=== PATIENT | female | born 1945 | race Caucasian/White ===

== ENCOUNTER 2021-01-25 13:40 | Outpatient (CLI) | payer MEDICARE, OTHER, SELFPAY ==
--- NOTE | 2021-01-25 14:29 | ECG_ITS ---
Measurements Intervals [place] Rate: 58 P: 44 ME: 170 QRS: 13 QRSD: 81 T: 15 QT: 391 QTc: 385 Interpretive Statements SINUS BRADYCARDIA BASELINE ARTIFACT- I, II, AVR, AVL, AVF BORDERLINE ECG Electronically Signed On 01-25-2021 15:04:41 [employer] by Tio Kamara D.O.
[2021-01-25 14:53] LABS: Basophils Absolute Auto 0.1 K/mm3 (0.0-0.1); Eosinophils Absolute Auto 0.1 K/mm3 (0-0.3); Eosinophils Percent Auto 1.3 % (0-4.4); Hematocrit 47.1 % (37.0-47.0); Hemoglobin 15.3 g/dL (12.0-15.0); Immature Granulocyte Absolute 0.03 K/mm3 (0.00-0.031); Immature Granulocyte Percent A 0.3 % (0-0.5); Lymphocytes Absolute Auto 3.18 K/mm3 (0.9-3.2); Lymphocytes Percent Auto 30.9 % (18.3-44.2); Mean Corpuscular HGB Conc 32.5 g/dl (32-36); Mean Corpuscular Hemoglobin 30.9 pg (26-34); Mean Corpuscular Volume 95.2 fl (80-100); Mean Platelet Volume 10.4 fl (7.4-10.4); Monocytes Absolute Auto 0.8 K/mm3 (0.1-0.6); Monocytes Percent Auto 7.7 % (2.6-8.5); Neutrophils Absolute Auto 6.1 K/mm3 (1.3-6.7); Neutrophils Percent Auto 58.8 % (45.5-73.1); Platelet Count Result 289 k/mm3 (150-375); Red Blood Count 4.95 M/mm3 (4.2-5.4); Red Cell Distribution Width 13.2 % (11.5-14.5); White Blood Count 10.3 K/mm3 (4.5-10.0)
[2021-01-25 15:11] LABS: Alanine Aminotransferase 24 U/L (4-35); Albumin Level 4.7 g/dL (3.5-5.1); Alkaline Phosphatase 105 U/L (38-126); Anion Gap 8 mmol/L (8-16); Aspartate Amino Transferase 33 U/L (14-36); Bilirubin,Total 0.4 mg/dL (0.2-1.3); Blood Urea Nitrogen 25 mg/dL (7-17); Calcium 9.2 mg/dL (8.4-10.2); Carbon Dioxide 29 mmol/L (22-30); Chloride 99 mmol/L (98-107); Estimated Glomerular Filt Rate > 60; Glucose 100 mg/dL (65-110); Potassium 3.8 mmol/L (3.4-5.0); Sodium 136 mmol/L (137-145)
[2021-01-25 17:14] LABS: INR 0.8; Prothrombin Time 11.4 Seconds (11.1-14.7)
[2021-01-25 17:16] LABS: Partial Thromboplastin Time 25.4 SECONDS (22.3-36.8)
== END 2021-01-25 13:41 | disposition home or self-care (01) ==
LOC: ANHSURGERY 13:46
PROVIDERS: PCP Internal Medicine; Visit Provider Urology
DX: N81.10 Cystocele, unspecified (principal); Z01.818 Encounter for other preprocedural examination; R94.31 Abnormal electrocardiogram [ECG] [EKG]
CPT/HCPCS: 36415; 80053; 85025; 85610; 85730; 87086; 93005

== ENCOUNTER 2021-02-08 00:20 | Day surgery (SDC) | payer MEDICARE, OTHER, SELFPAY ==
[2021-01-25 13:52] VITALS: BP 128/76; PULSE 60; RESP 18; TEMP 36.9; O2SAT 98; BMI 27.9
--- NOTE | 2021-01-25 13:53 | PC.NURSE ---
Report to the Outpatient Waiting Room, entrance under the green pavilion located off [facility], at time _1000_ on date _02/08/21__. OR Time: _1200__. - You and your visitor will be asked a series of questions to screen for COVID 19 for your protection. - A mask is required within the hospital. - Only one visitor is allowed at this time. Patient visitors will be guided where to wait when not with patient. Preoperative COVID Testing Requirements: No COVID Test needed if: (proof is required; if not received patient will have Rapid Test prior to entry) - Patient has received COVID Vaccine at least 14 days prior to procedure date or - Patient has positive COVID test result within last 90 days of surgery date. COVID Test needed if above criteria is not met If not COVID vaccinated a COVID test must be conducted within 72 hours of surgery and patient is asked to isolate self from time of testing until procedure. You will go to the [facility] for your COVID testing. The [facility] [facility] Testing site is located at the corner of [address] [facility]. You will only be called if COVID results are positive and your surgeon may reschedule your elective surgery date. Patients may have clear liquids (water, carbonated beverages, clear teas, apple juice) until 3 hours prior to surgery with a maximum of 20 ounces. (0900 AM) - No food from midnight until time of surgery - Infants may have breast milk until 4 hours before surgery, infant formula 6 hours prior to surgery. - Children will be allowed to drink immediately following surgery. If applicable, please bring a bottle or sippy cup to assist with drinking. Juice, water, soda, and popsicles are readily available. For infants on formula, please bring formula the day of surgery. Pacifiers are allowed. Take the following medications with a SIP of water the morning of surgery:__N/A___ Medications to discontinue per physician Date to take last dose Please no make-up, nail english, hairspray, perfume, deodorant, or body powder the day of surgery. No jewelry (including any body piercings) or valuables the day of surgery, leave them at home. Please take a shower or bath the night before, or the morning of, surgery with an antibacterial soap. Wear comfortable, loose fitting clothing. Children are encouraged to wear pajamas. - Jewelry must be removed prior to entering the operating room. Rings and piercings that are not removed may be cut off. - The hospital will not accept responsibility for valuables. - Please leave all valuables, including medications, at home the day of surgery. If you are going home after surgery, a licensed hog driver must drive you home. - NO public transportation without another adult. - We recommend that an adult stay with you for 24 hours following discharge. - We also recommend that you do not drive, make important decision, drink alcoholic beverages, or take any drugs that were not prescribed by your health care provider for at least 24 hours after your discharge time. For Pediatric surgeries, we recommend two adults accompany the child home (only one inside the building at this time). Follow any additional instructions given to you from your surgeon. Telephone instructions given to PT and asked if any additional questions and then verbalized understanding. Patient advised to call surgeon office or pre surgery nurse liaison [phone] if any additional questions.
--- NOTE | 2021-02-05 14:32 | P.HP_ITS ---
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 Alcohol intake: current Drinks per week: 14 Alcohol use details: 2 GLASSES WINE/NOC Substance use: never Substance use type: does not use Spiritual care concerns: No Meds Home Medications and Allergies Home Medications Medication Instructions Recorded Confirmed Type atorvastatin 20 mg HS 01/25/21 01/25/21 History gabapentin 100 mg QAM 01/25/21 01/25/21 History Allergies Allergy/AdvReac Type Severity Reaction Status Date / Time No Known Allergies Allergy Mild Unverified 01/25/21 14:06 Exam Narrative: anterior wall and apex at +3 Assessment and Plan Assessment and plan (1) Prolapse of vaginal vault after hysterectomy: Code(s): N99.3 - Prolapse of vaginal vault after hysterectomy Status: Acute Assessment and Plan: Robotic Sacral Colpopexy (2) RADHA (stress urinary incontinence, female): Code(s): N39.3 - Stress incontinence (female) (male) Status: Acute Assessment and Plan: urethral sling
[2021-02-08] VITALS (9 sets, daily range): BP systolic 129–156; BP diastolic 64–82; PULSE 64–102; RESP 14–16; TEMP 36.3–36.9; O2SAT 87–100
--- NOTE | 2021-02-08 07:11 | WPDHPUPDATE1 ---
History and Physical Update Update Date/Time: 02/08/21 07:11 History and Physical has been reviewed, including an updated exam of the patient. There are NO changes in the patient's condition. Risks, benefits, and alternatives have been discussed and questions answered. Patient agrees to proceed with procedure.
--- NOTE | 2021-02-08 09:19 | WPDANESEPPF ---
Anes - Initial Pre Proc Eval Procedure: Operation Date: 02/08/21 11:30 Proposed Procedures p Robotic Sacrocolpopexy - Manny Villalba MD s Urethral Sling - Manny Villalba MD Date/Time: 02/08/21 09:19 Surgeon: Manny Villalba MD Pre Op Diagnosis: vaginal vault prolapse, stress incont Patient Data Age: 75 Gender: F Height: 1.68 m Weight: 78.6 kg Last Vital Signs Temp 98.5 F 01/25/21 13:52 Pulse 60 01/25/21 13:52 Resp 18 01/25/21 13:52 BP 128/76 01/25/21 13:52 Pulse Ox 98 01/25/21 13:52 Allergies Allergy/AdvReac Type Severity Reaction Status Date / Time No Known Allergies Allergy Mild Unverified 02/08/21 09:39 Home Medications Medication Instructions Recorded Confirmed Type atorvastatin 20 mg HS 01/25/21 02/08/21 History gabapentin 100 mg QAM 01/25/21 02/08/21 History docusate sodium [Colace] 100 mg PO BID #60 cap 02/08/21 Rx hydrocodone-acetaminophen 1 tablet PO Q6H PRN #20 tablet 02/08/21 Rx Patient hx anesthesia problems: none Family hx anesthesia problems: none Results Review: All pre-operative results and documents have been reviewed as part of the pre-operative evaluation. [facility] Social History Social History Smoking packs per day: 0.5 Smoking cigarettes per day: 10.0 Smoking status: Former smoker Tobacco type: cigarettes Second hand tobacco smoke exposure: No Additional smoking assessment comments: STATES 1/2PK/DAY SINCE SENIOR IN [employer] - QUIT EARLY Alcohol intake: current Drinks per week: 14 Alcohol use details: 2 GLASSES WINE/NOC Substance use: never Substance use type: does not use Living arrangements: alone Spiritual care concerns: No Anes - Eval Final PreProcedure Day of Procedure 02/08/21 09:19 Patient weight: overweight Heart: regular rate and rhythm Lungs: clear to auscultation Airway: Mallampati scale class III Neurological: alert and oriented Last oral intake: >/= 8 hours ASA classification: III Emergent: no Anesthetic plan: proceed Anesthesia type and monitoring: general ETT and standard monitoring Results Review: All pre-operative results and documents have been reviewed as part of the pre-operative evaluation. Informed Consent: The patient's anesthetic plan and its attendant risks and benefits were discussed with the patient/family/POA. Questions were solicited and answers provided to the satisfaction of the patient/family/POA.
[2021-02-08] MEDS: LACTATED RINGERS 1,000 ML 30 ML IV CONT ×2 (10:05→14:12)
[2021-02-08] MEDS: ceFAZolin 2 GM/D5W 50 ML 2 GM/50 ML BAG IVPB (11:02)
[2021-02-08] MEDS: BUPIVACAINE/EPINEPHRINE 0.25% 10 ML VIAL 20 ML INFILTRATE (11:36)
--- NOTE | 2021-02-08 14:01 | W.PM.PROC2 ---
Procedure Note - Detailed Date of Procedure 02/08/21 Pre-op Diagnosis vaginal vault prolapse, stress incont Post-op Diagnosis same Procedure Performed Robotic assisted laparoscopic sacral colpopexy Urethral sling Cystoscopy Surgeon Manny Villalba MD Anesthesia general Indications This is a woman with post hysterectomy vaginal vault prolapse as well as stress urinary incontinence. She desires surgical correction. She understands risks of bleeding, infection, diskitis, damage to surrounding organs, damage to the bowel or urinary tract, recurrence of prolapse, dyspareunia, vaginal mesh exposure, urinary tract mesh exposure, obstructive voiding requiring secondary procedure, hip and leg pain, and other perioperative intraoperative and postoperative complications. She is to proceed Findings See below Description of Procedure She was correctly identified. Informed consent obtained. She is brought to the operating room. She was given general anesthesia. She was placed in the lithotomy position. She was given appropriate perioperative antibiotics. She was prepped and draped in a sterile fashion. A time-out performed. I anesthetized the skin 3 fingerbreadths cephalad to the umbilicus. I incised the skin. I located the fascia. I grasped the fascia with Mario clamps. I incised the fascia sharply and a Arshad type technique. I placed Vicryl sutures for later fascial closure. I placed a midline trocar. Under direct vision placed 2 additional trocars in the right upper quadrant and 2 additional trocars in the left upper quadrant. She was placed in steep Trendelenburg. The robot was docked. I sat at the console. There were adhesions of the colon noted in the deep cul-de-sac. These were all lysed sharply. No cautery was used. With the Sizer in the vagina and created a plane on the anterior and posterior vaginal wall for several cm taking great care not to injure the vagina, bladder, or rectum. The tissues were quite scarred and adherent in this area. I introduced the mesh into the vagina. I sewed the anterior leaflet of mesh on the anterior vaginal wall and posterior leaf of the mesh on the posterior vaginal wall with several sutures of 2 0 [place]Dam[place] taking great care not to go through and through. I then opened up the peritoneum over the sacral promontory. I carried this incision into the cul-de-sac. I freed up the edges for later retroperitonealization of the mesh. I located the anterior longitudinal ligament of the sacrum. I cleaned off any fatty tissues. I then tensioned my mesh appropriately. I did a vaginal exam to ensure prolapse reduction without undue tension. I then sewed the proximal leaflet of mesh onto the ligament with several sutures of 2 0 [place]Damien. I then used a 2 0 Monocryl to meticulously retroperitonealized all mesh. I allowed the colon to go back into its normal anatomic location. There is no sign of impingement. He had an was then exited. Fascial sutures were closed. The wounds were all irrigated and closed with 4 O Monocryl and skin glue. She was then repositioned and prepped for urethral sling. I marked out the inner thigh incisions. I anesthetized the skin and made those incisions. I then anesthetized the anterior vaginal wall over the mid urethra. I made a 1 cm incision. I dissected out laterally taking great care not to injure the urethra vaginal wall. I passed the helical trocars. I did this 1st on the left than on the right from the thigh incision towards the vaginal incision. Sling was connected to the trocars and brought out through the thigh incision. I tensioned the sling appropriately. I cut and removed the plastic sleeves. I then performed cystoscopy. The bladder showed no evidence of surgical artifact or tumor. Both ureters were seen to excrete clear yellow urine. I cut the excess sling material. I closed incisions with glue. She was awakened and transferred to the PACU in stable condition.
[2021-02-08] MEDS: fentaNYL CITRATE INJ (*CRX) 100 MCG/2 ML VIAL 25 MCG IV PUSH (14:51)
--- NOTE | 2021-02-08 15:34 | PC.NURSE ---
This patient, Lashon Santoyo, was received from [PACU per bed to room 288. Patient/family oriented to unit policies and routines
[2021-02-08] MEDS: KCL 20 MEQ/D5/0.45% SOD CHL 1,000 ML 100 ML IV CONT (15:57)
[2021-02-08] MEDS: KETOROLAC 15 MG/ML VIAL (*BKC) IV PUSH (17:30)
[2021-02-08] MEDS: ATORVASTATIN 20 MG TABLET BY MOUTH (20:03)
[2021-02-09] MEDS: KETOROLAC 15 MG/ML VIAL (*BKC) IV PUSH ×2 (01:45→07:22)
[2021-02-09] MEDS: KCL 20 MEQ/D5/0.45% SOD CHL 1,000 ML 50 ML IV CONT (01:45)
[2021-02-09 07:40] VITALS: BP 133/77; PULSE 80; RESP 18; TEMP 36.9
[2021-02-09] MEDS: ENOXAPARIN 30 MG/0.3 ML SYRINGE SUB-Q (09:10)
[2021-02-09] MEDS: DOCUSATE SODIUM 100 MG CAPSULE PO (09:10)
--- NOTE | 2021-02-09 10:55 | WPDUROPN2 ---
Progress Note: A&P Assessment and Plan (1) Prolapse of vaginal vault after hysterectomy: Code(s): N99.3 - Prolapse of vaginal vault after hysterectomy Status: Acute Assessment and Plan: Ok to discharge patient home after antibiotic dose. (2) RADHA (stress urinary incontinence, female): Code(s): N39.3 - Stress incontinence (female) (male) Status: Acute Subjective Subjective Date/Time Seen: 02/09/21 10:55 POD #1 Robotic Assisted Laparoscopic Sacral Colpopexy, urethral sling, cystoscopy. Patient doing very well, tolerating pain and diet. Urinating since adams removal. Review of Systems Cardiovascular: Cardiovascular: Denies chest pain Respiratory: Respiratory: Reports no additional respiratory complaints Gastrointestinal: Gastrointestinal: Reports abdominal pain (at incisons only), Denies nausea and Denies vomiting Genitourinary: Genitourinary: Denies hematuria, Denies nocturia, Denies dysuria, Denies flank pain, Denies urinary incontinence, Denies urinary hesitancy and Denies urinary urgency Exam Resp: Effort & Inspection: normal respiratory effort Cardio: Rate: regular rate GI: GI Palp: Yes Soft to palpation and Yes Tenderness to palpation present (GI) (at incisions, no drainage, edema) : General: Yes no CVA tenderness Extrem: General: no edema Objective Data Vital Signs Vital Signs: Vital Signs - 24 hr 02/08/21 14:12 02/08/21 14:25 02/08/21 14:40 Temperature 97.6 F Pulse Rate 76 68 64 Respiratory Rate 14 14 14 Blood Pressure 156/80 H 141/82 H 150/68 H Pulse Oximetry 97 99 100 02/08/21 14:55 02/08/21 15:10 02/08/21 15:22 Temperature Pulse Rate 66 76 68 Respiratory Rate 14 14 14 Blood Pressure 129/68 136/66 133/65 Pulse Oximetry 87 L 98 97 02/08/21 15:45 02/08/21 20:00 02/09/21 07:40 Temperature 97.3 F L 98.5 F 98.5 F Pulse Rate 80 102 H 80 Respiratory Rate 16 16 18 Blood Pressure 137/64 143/70 H 133/77 Pulse Oximetry 97 97 Intake/Output Intake/Output: Intake & Output 02/06/21 02/07/21 02/08/21 02/09/21 23:59 23:59 23:59 23:59 Intake Total 850 1350 Output Total 1860 750 Balance -1010 600 Meds/Results Medications: Active Medications Generic Name Dose Route Start Last Admin Trade Name Freq PRN Reason Stop Dose Admin Acetaminophen 650 mg 02/08/21 15:26 Acetaminophen 325 Mg Tablet PO Q4H PRN Mild Pain (1-3) or Fever Hydrocodone Bitart/Acetaminophen 1 tab 02/08/21 15:26 Hydrocodone/Acetaminophen (*Crx) 5-325 Mg Tablet PO Q4H PRN Pain Rated 4-5 Atorvastatin Calcium 20 mg 02/08/21 21:00 02/08/21 20:03 Atorvastatin 20 Mg Tablet BY MOUTH 20 mg HS JAVY Administration Cephalexin HCl 500 mg 02/09/21 17:00 Cephalexin 500 Mg Capsule PO QID JAVY Diphenhydramine HCl 25 mg 02/08/21 15:26 Diphenhydramine Hcl Inj 50 Mg/Ml Vial IV PUSH Q6H PRN Itching Docusate Sodium 100 mg 02/09/21 09:00 02/09/21 09:10 Docusate Sodium 100 Mg Capsule PO 100 mg DAILY JAVY Administration Enoxaparin Sodium 30 mg 02/09/21 09:00 02/09/21 09:10 Enoxaparin 30 Mg/0.3 Ml Syringe SUB-Q 30 mg DAILY JAVY Administration Gabapentin 100 mg 02/09/21 09:00 02/09/21 09:27 Gabapentin 100 Mg Capsule BY MOUTH Not Given QAM JAVY Potassium Chloride/Dextrose/Sod Cl 1,000 mls @ 100 mls/hr 02/08/21 15:26 02/09/21 01:45 Kcl 20 Meq/D5/0.45% Sod Chl IV CONT 50 mls/hr .Q10H JAVY Administration Ketorolac Tromethamine 15 mg 02/08/21 15:26 02/09/21 07:22 Ketorolac 15 Mg/Ml Vial (*Bkc) IV PUSH 02/09/21 15:27 15 mg Q8H PRN Administration Pain Rated 5 or Less Morphine Sulfate 2 mg 02/08/21 15:26 Morphine Sulfate (*Crx) 2 Mg/Ml Inj IV PUSH Q2H PRN Pain Rated 6 or Greater Ondansetron HCl 4 mg 02/08/21 15:26 Ondansetron Inj 4 Mg/2 Ml Vial IV PUSH Q6H PRN Nausea And Vomiting Zolpidem Tartrate 5 mg 02/08/21 15:26 Zolpidem Tartr
--- NOTE | 2021-02-09 11:04 | PC.NURSE ---
Discharge instructions given including when to follow up with Dr. Villalba. Pt. verbalized understanding. No questions or concerns verbalized. Very pleasant and cooperative.
== END 2021-02-09 11:55 | disposition home or self-care (01) ==
LOC: ANHSURGERY 10:44 → ANHOB2 15:31
PROVIDERS: PCP Internal Medicine; Visit Provider Urology
PROC: (CPT 57425; principal; 2021-02-08 11:30)
PROC: (CPT 57288; 2021-02-08 11:30)
DX: N99.3 Prolapse of vaginal vault after hysterectomy (principal); N39.3 Stress incontinence (female) (male); Z87.891 Personal history of nicotine dependence
CPT/HCPCS: 57288; 57425; 36415; 86850; 86900; 86901; 99199; A9270; C1771; C1781; C9290; J0690; J1100; J1650; J1885; J2250; J2704; J2710; J3010; J3480; J7030; J7120